=== PATIENT | male | born 1945 | race Two or more races ===

== ENCOUNTER 2021-06-05 12:32 | Inpatient (IN) ==
--- NOTE | 2021-06-05 16:35 | RAD ---
HISTORYHYPOTENSION, DIZZINESSSTUDYCHEST x-ray, 1 VIEWCOMPARISONNoneFINDINGSCardiomegaly and probable CHF. Possible pulmonary edema is present. No pneumothorax or pleural effusion is seen.IMPRESSIONProbable CHF and possible pulmonary edema.Electronically signed by: Tanner Burton (Jun 05, 2021 16:33:39)
[2021-06-05 16:42] LABS: BASOPHILS # (AUTO) 0.1 X10^3/uL (0.0-0.1); BASOPHILS % (AUTO) 1.3 % (0.2-1.0); EOSINOPHILS # (AUTO) 0.2 x10^3/uL (0.0-0.2); EOSINOPHILS % (AUTO) 2.4 % (0.9-2.9); LYMPHOCYTES # (AUTO) 3.5 X10^3/uL (1.3-2.9); LYMPHOCYTES % (AUTO) 37.6 % (21.0-51.0); MEAN CORPUSCULAR HGB CONC 29.8 g/dL (33.0-35.0); MEAN CORPUSCULAR VOLUME 53.5 fL (80.0-100.0); MEAN PLATELET VOLUME 8.7 fL (7.4-11.0); MONOCYTES # (AUTO) 0.5 x10^3/uL (0.3-0.8); NEUTROPHILS % (AUTO) 53.7 % (42.0-75.0); PLATELET COUNT 291 X10^3/uL (150.0-450.0); RED BLOOD COUNT 3.31 X10^6/uL (4.7-6.0); RED CELL DISTRIBUTION WIDTH 20.1 % (11.6-16.5); WHITE BLOOD COUNT 9.4 X10^3/uL (3.6-10.0)
[2021-06-05 16:44] LABS: HEMATOCRIT 17.7 % (42.0-54.0); HEMOGLOBIN 5.3 g/dL (13.5-18.0)
[2021-06-05] MEDS ORDERED: NS 1,000 ML IV 1,000 ML ONE (16:45)
[2021-06-05 16:52] LABS: ALANINE AMINOTRANSFERASE 19 Units/L (12-78); ALBUMIN 3.6 g/dL (3.4-5.0); ALKALINE PHOSPHATASE 75 Units/L (46-116); ASPARTATE AMINO TRANSFERASE 12 Units/L (15-37); BLOOD UREA NITROGEN 8 mg/dL (7-18); CALCIUM 8.4 mg/dL (8.5-10.1); CARBON DIOXIDE 27.6 mmol/L (21-32); CHLORIDE 105 mmol/L (98-107); CKMB % 2.7 % (<4); CREATINE KINASE 37 Units/L (39-308); CREATINE KINASE MB < 1.0 ng/mL (0-4.0); CREATININE 0.82 mg/dL (0.70-1.30); MAGNESIUM 2.3 mg/dL (1.7-2.9); SODIUM 141 mmol/L (136-145); TOTAL PROTEIN 7.1 g/dL (6.4-8.2); TROPONIN I < 0.02 ng/mL (0-1.5); TSH (3RD GENERATION) 3.208 uIU/mL (0.358-3.74); eGFR NON BLACK RACES > 60 (>60)
[2021-06-05] MEDS: NS 1,000 ML IV 1,000 ML IV SCH ×2 (17:05→19:18)
[2021-06-05] MEDS ORDERED: BENADRYL INJ 50 MG VIAL IVP ONE (17:07)
[2021-06-05] MEDS ORDERED: TYLENOL 325 MG TAB PO ONE (17:07)
[2021-06-05] MEDS ORDERED: LASIX IVP ONE (17:08)
[2021-06-05 17:09] LABS: ANISOCYTOSIS 1+; BAND NEUTROPHILS % 3 % (0-10); BASOPHILS % (MANUAL) 1 % (0-1); HYPOCHROMASIA 3+; METAMYELOCYTES % 1; MICROCYTOSIS 3+; PLATELET MORPHOLOGY COMMENT NORMAL (NORMAL); TARGET CELLS 2+
[2021-06-05] MEDS ORDERED: NS 1,000 ML IV 1,000 ML IV ONE (18:35)
[2021-06-05 18:44] LABS: BILIRUBIN,URINE NEGATIVE (NEGATIVE); BLOOD/HEMOGLOBIN,URINE NEGATIVE (NEGATIVE); GLUCOSE, URINE NEGATIVE (NEGATIVE); KETONES,URINE NEGATIVE (NEGATIVE); LEUKOCYTE ESTERASE ,URINE NEGATIVE (NEGATIVE); NITRITES,URINE NEGATIVE (NEGATIVE); PH,URINE 6.5 (5.0 - 8.0); PROTEIN,URINE NEGATIVE (NEGATIVE); UROBILINOGEN,URINE NORMAL (NORMAL)
[2021-06-05 18:47] LABS: APPEARANCE,URINE CLEAR (CLEAR); COLOR,URINE STRAW (YELLOW)
[2021-06-05] MEDS: HEMOCYTE-PLUS PO SCH (19:17)
[2021-06-05] MEDS ORDERED: PROCRIT or EPOGEN VIAL 10,000 UNITS SC ONE (19:58)
[2021-06-05] MEDS: COLACE CAP 100 MG PO SCH (20:38)
[2021-06-05] MEDS ORDERED: NS 100 ML IV 100 ML with VENOFER 400 MG IV ONE ×2 (21:00)
[2021-06-06] MEDS: NS 1,000 ML IV 1,000 ML IV SCH ×4 (00:34→17:41)
[2021-06-06 05:49] LABS: BASOPHILS # (AUTO) 0.1 X10^3/uL (0.0-0.1); EOSINOPHILS # (AUTO) 0.1 x10^3/uL (0.0-0.2); EOSINOPHILS % (AUTO) 1.2 % (0.9-2.9); LYMPHOCYTES # (AUTO) 1.8 X10^3/uL (1.3-2.9); LYMPHOCYTES % (AUTO) 21.5 % (21.0-51.0); MEAN CORPUSCULAR HEMOGLOBIN 16.3 pg (27.0-34.0); MEAN CORPUSCULAR HGB CONC 29.8 g/dL (33.0-35.0); MEAN CORPUSCULAR VOLUME 54.6 fL (80.0-100.0); MEAN PLATELET VOLUME 8.9 fL (7.4-11.0); MONOCYTES # (AUTO) 0.6 x10^3/uL (0.3-0.8); MONOCYTES % (AUTO) 7.4 % (0.0-13.0); NEUTROPHILS # (AUTO) 5.7 x10^3/uL (2.2-4.8); NEUTROPHILS % (AUTO) 68.9 % (42.0-75.0); PLATELET COUNT 251 X10^3/uL (150.0-450.0); RED CELL DISTRIBUTION WIDTH 19.9 % (11.6-16.5); WHITE BLOOD COUNT 8.3 X10^3/uL (3.6-10.0)
[2021-06-06 05:57] LABS: ALANINE AMINOTRANSFERASE 18 Units/L (12-78); ALBUMIN 2.9 g/dL (3.4-5.0); ALKALINE PHOSPHATASE 64 Units/L (46-116); ASPARTATE AMINO TRANSFERASE 12 Units/L (15-37); BLOOD UREA NITROGEN 8 mg/dL (7-18); CALCIUM 7.5 mg/dL (8.5-10.1); CARBON DIOXIDE 24.9 mmol/L (21-32); CHLORIDE 106 mmol/L (98-107); COR CA(FOR HYPOALB) 8.4 mg/dL (8.5-10.1); CREATININE 0.72 mg/dL (0.70-1.30); SODIUM 139 mmol/L (136-145); TOTAL PROTEIN 6.1 g/dL (6.4-8.2); eGFR NON BLACK RACES > 60 (>60)
[2021-06-06 06:24] LABS: HEMATOCRIT 16.4 % (42.0-54.0); HEMOGLOBIN 4.9 g/dL (13.5-18.0); PLATELET MORPHOLOGY COMMENT NORMAL (NORMAL)
[2021-06-06 06:25] LABS: ANISOCYTOSIS 1+; HYPOCHROMASIA 3+; MICROCYTOSIS 3+; TARGET CELLS PRESENT
--- NOTE | 2021-06-06 08:03 | DR.H&P ---
H&P History & Physical for Day of: H&P Date: 06/05/21 Chief Complaint Chief Complaint: Weakness, Dizziness, SOB Allergies Allergies Allergy/AdvReac Type Severity Reaction Status Date / Time No Known Drug Allergies Allergy Verified 06/05/21 17:34 History of Present Illness History of Present Illness: This is a pleasant 76 yo wm who presented in the office today for a BP recheck. His BP today is 66/47 which is lower than a week ago. He was 82/54 1 week ago. He was put on 0.1 mg of Florinef to help raise his BP but it did not help. He also reports now dizziness and weakness. He feels lethargic. He also notes he has to get up and urinate at night 5 times or more. Glucose was checked in office and it was 99. Patient will be admitted for his symptomatic hypotension for work-up of its cause. Past Surgical History Surgical History: Unknown Family History Family Medical History: denies Diabetes Mellitus, Cancer, [place], Coronary Artery Disease, Heart Failure, Sudden Cardiac and Hypertension Social History Does patient currently use any type of tobacco product: Yes Type of Tobacco Use: Cigarettes How many years tobacco product used: 40 Alcohol Use: None Drug Use: None Medications Home Medications: No Known Drug Allergies Allergy (Verified 06/05/21 17:34) CONTINUE taking the following medications aspirin [Jailene Aspirin] 81 mg PO DAILY 06/05/21 [History] cefuroxime axetil 500 mg PO BID 06/05/21 [History] fludrocortisone 0.1 mg PO DAILY 06/05/21 [History] Labs Result Diagrams: 06/06/21 04:49 06/06/21 04:49 Labs: Laboratory WBC 8.3 X10^3/uL (3.6-10.0) 06/06/21 04:49 RBC 3.00 X10^6/uL (4.7-6.0) L 06/06/21 04:49 Hgb 4.9 g/dL (13.5-18.0) L* 06/06/21 04:49 Hct 16.4 % (42.0-54.0) L* 06/06/21 04:49 MCV 54.6 fL (80.0-100.0) L 06/06/21 04:49 MCH 16.3 pg (27.0-34.0) L 06/06/21 04:49 MCHC 29.8 g/dL (33.0-35.0) L 06/06/21 04:49 RDW 19.9 % (11.6-16.5) H 06/06/21 04:49 Plt Count 251 X10^3/uL (150.0-450.0) 06/06/21 04:49 Plt Count Comment Adequate (ADEQUATE) 06/06/21 04:49 MPV 8.9 fL (7.4-11.0) 06/06/21 04:49 Neut % (Auto) 68.9 % (42.0-75.0) 06/06/21 04:49 Lymph % (Auto) 21.5 % (21.0-51.0) 06/06/21 04:49 [place] % (Auto) 7.4 % (0.0-13.0) 06/06/21 04:49 Eos % (Auto) 1.2 % (0.9-2.9) 06/06/21 04:49 Baso % (Auto) 1.0 % (0.2-1.0) 06/06/21 04:49 Neut # (Auto) 5.7 x10^3/uL (2.2-4.8) H 06/06/21 04:49 Lymph # (Auto) 1.8 X10^3/uL (1.3-2.9) 06/06/21 04:49 [place] # (Auto) 0.6 x10^3/uL (0.3-0.8) 06/06/21 04:49 Eos # (Auto) 0.1 x10^3/uL (0.0-0.2) 06/06/21 04:49 Baso # (Auto) 0.1 X10^3/uL (0.0-0.1) 06/06/21 04:49 Absolute Nucleated RBC 1.4 /100WBC 06/06/21 04:49 Total Counted 100 06/05/21 16:01 Neutrophils % (Manual) 56 % (39-76) 06/05/21 16:01 Band Neutrophils % 3 % (0-10) 06/05/21 16:01 Lymphocytes % (Manual) 30 % (13-43) 06/05/21 16:01 Monocytes % (Manual) 8 % (4-9) 06/05/21 16:01 Eosinophils % (Manual) 1 % (0-6) 06/05/21 16:01 Basophils % (Manual) 1 % (0-1) 06/05/21 16:01 Metamyelocytes % 1 06/05/21 16:01 Plt Morphology Comment Normal (NORMAL) 06/06/21 04:49 RBC Morphology Abnormal (NORMAL) 06/06/21 04:49 Hypochromasia 3+ A 06/06/21 04:49 Anisocytosis 1+ A 06/06/21 04:49 Microcytosis 3+ A 06/06/21 04:49 Target Cells Present 06/06/21 04:49 Sodium 139 mmol/L (136-145) 06/06/21 04:49 Corrected Sodium TNP 06/06/21 04:49 Potassium 4.0 mmol/L (3.5-5.1) 06/06/21 04:49 Chloride 106 mmol/L (98-107) 06/06/21 04:49 Carbon Dioxide 24.9 mmol/L (21-32) 06/06/21 04:49 BUN 8 mg/dL (7-18) 06/06/21 04:49 Creatinine 0.72 mg/dL (0.70-1.30) 06/06/21 04:49 Est GFR (MDRD) Af Amer > 60 (>60) 06/06/21 04:49 Est GFR (MDRD) Non-Af > 60 (>60) 06/06/21 04:49 Glucose 100 mg/dL (65-99) H 06/06/21 04:49 Calcium 7.5 mg/dL (8.5-10.1) L 06/06/21 04:49 Corrected Calcium 8.4 mg/dL (8.5-10.1) L 06/06/21 04:49 Magnesium 2.3 mg/dL (1.7-2.9) 06/05/21 16:01 Iron 8 ug/dL (50-175) L 06/05/21 16:01 Transferrin 410 mg/dL (202-364) H 06/05/21 16:01 Ferritin 2 ng/mL (26-388) L 06/05/21 16:01 Total Bilirubin 0.20 mg/dL (0.2-1.0) 06/06/21 04:49 AST 12 Units/L (15-37) L 06/06/21 04:49 ALT 18 Units/L (12-78) 06/06/21 04:49 Alkaline Phosphatase 64 Units/L (46-116) 06/06/21 04:49 Creatine Kinase 37 Units/L (39-308) L 06/05/21 16:01 CK-MB (CK-2) < 1.0 ng/mL (0-4.0) 06/05/21 16:01 CK/CKMB % Calc 2.7 % (<4) 06/05/21 16:01 Troponin I < 0.02 ng/mL (0-1.5) 06/05/21 16:01 Total Protein 6.1 g/dL (6.4-8.2) L 06/06/21 04:49 Albumin 2.9 g/dL (3.4-5.0) L 06/06/21 04:49 Globulin 3.2 g/dL (2.5-4.5) 06/06/21 04:49 Albumin/Globulin Ratio 0.9 Ratio (1.1-2.1) L 06/06/21 04:49 Total PSA 19.90 ng/mL (0.13-4.0) H 06/05/21 16:01 Vitamin B12 584 pg/mL (193-986) 06/05/21 16:01 Vitamin B12 591 pg/mL (193-986) 06/05/21 16:01 Folate 17.3 ng/mL (>8.6) 06/05/21 16:01 Folate 17.3 ng/mL (>8.6) 06/05/21 16:01 TSH 3rd Generation 3.208 uIU/mL (0.358-3.74) 06/05/21 16:01 Specimen Type Clean catch urine 06/05/21 18:23 Urine Color Straw (YELLOW) 06/05/21 18: Urine Appearance Clear (CLEAR) 06/05/21 18:23 Urine pH 6.5 (5.0 - 8.0) 06/05/21 18:23 Ur Specific [place] 1.010 (1.000-1.030) 06/05/21 18:23 Urine Protein Negative (NEGATIVE) 06/05/21 18:23 Urine Glucose (UA) Negative (NEGATIVE) 06/05/21 18:23 Urine Ketones Negative (NEGATIVE) 06/05/21 18:23 Urine Occult Blood Negative (NEGATIVE) 06/05/21 18:23 Urine Nitrite Negative (NEGATIVE) 06/05/21 18:23 Urine Bilirubin Negative (NEGATIVE) 06/05/21 18:23 Urine Urobilinogen Normal (NORMAL) 06/05/21 18:23 Ur Leukocyte Esterase Negative (NEGATIVE) 06/05/21 18:23 SARS-CoV-2 (PCR) Negative (NEGATIVE) 06/05/21 14:00 Influenza Type A (PCR) Negative (NEGATIVE) 06/05/21 14:00 Influenza Type B (PCR) Negative (NEGATIVE) 06/05/21 14:00 RSV (PCR) Negative (NEGATIVE) 06/05/21 14:00 Blood Type O POSITIVE 06/05/21 17:31 Antibody Screen Negative 06/05/21 17:31 Crossmatch See Detail 06/05/21 17:31 Review of Systems Constitutional: Weakness and Malaise Eyes: No Symptoms Reported ENT: No Symptoms Reported Respiratory: SOB with Excertion Cardiovascular: Other (CARBONE) Gastrointestinal: No Symptoms Reported Genitourinary: Other (Polyuria/ Nocturia 5x's/HS) Musculoskeletal: No Symptoms Reported Skin: No Symptoms Reported Neurological: Weakness Physical Exam Vital Signs: Temperature 99.0 F Pulse Rate [Left Brachial] 75 Pulse Rate 68 Respiratory Rate 74 Blood Pressure [Left Arm] 82/53 Blood Pressure 75/52 O2 Sat by Pulse Oximetry 96 Oriented: Normal Eyes: Normal Ear: Normal Nose: Normal Throat: Normal Respiratory: Clear Throughout Cardiovascular: Normal : Normal Auscultation: Bowel Sounds: Normal Palpation: Normal Tenderness: Normal Skin: Normal Musculoskeletal: Normal Psychiatric: Normal Mood Description: Calm Affect: Normal Speech Pattern: Clear Assessment/Plan (1) Hypotension: Status: Acute Plan: Check CBC, CMP (2) Nocturia: Status: Acute Plan: Check PSA (3) CARBONE (dyspnea on exertion): Status: Acute Plan: Serial cardiac enzymes and EKG's and CXR. (4) Weakness: Status: Acute Plan: Check TSH, B12 and Folate. Review H&P Reviewed: Yes Patient was examined?: Yes
[2021-06-06] MEDS: HEMOCYTE-PLUS PO SCH (08:09)
[2021-06-06] MEDS ORDERED: NS 250 ML IV 250 ML IV ONE (09:04)
[2021-06-06] MEDS ORDERED: NS 500 ML IV 500 ML IV ONE (10:00)
[2021-06-06 16:26] LABS: CKMB % 2.6 % (<4); CREATINE KINASE 39 Units/L (39-308); CREATINE KINASE MB < 1.0 ng/mL (0-4.0); TROPONIN I < 0.02 ng/mL (0-1.5)
[2021-06-06 17:44] LABS: HEMATOCRIT 23.3 % (42.0-54.0)
[2021-06-06 17:46] LABS: HEMOGLOBIN 7.3 g/dL (13.5-18.0)
[2021-06-06] MEDS: COLACE CAP 100 MG PO SCH (20:54)
--- NOTE | 2021-06-06 21:21 | DR.CONSULT ---
CONSULT Consultation for Day of: Date: 06/06/21 Chief Complaint Chief Complaint: I was asked to consult on this his patient who presented to his primary care provider with dizziness and was noted to be significantly hypotensive. On checking a hemoglobin it was 4. 6. He denies any recent blood in his stool or vomiting. He has no significant past medical problems. Allergies Allergies Allergy/AdvReac Type Severity Reaction Status Date / Time No Known Drug Allergies Allergy Verified 06/05/21 17:34 History of Present Illness History of Present Illness: As above. Past Surgical History Surgical History: Unknown Social History Does patient currently use any type of tobacco product: Yes Type of Tobacco Use: Cigarettes How many years tobacco product used: 40 Alcohol Use: None Drug Use: None Medications Home Medications: No Known Drug Allergies Allergy (Verified 06/05/21 17:34) CONTINUE taking the following medications aspirin [Jailene Aspirin] 81 mg PO DAILY 06/05/21 [History] cefuroxime axetil 500 mg PO BID 06/05/21 [History] fludrocortisone 0.1 mg PO DAILY 06/05/21 [History] Review of Systems Cardiovascular: Other (dizziness) Physical Exam Vital Signs: Temperature 98.3 F Pulse Rate [Left Brachial] 75 Pulse Rate 68 Respiratory Rate 18 Blood Pressure [Left Arm] 87/54 Blood Pressure 75/52 O2 Sat by Pulse Oximetry 98 Oriented: Normal, Time, Person and Place Eyes: Normal Ear: Normal Nose: Normal Throat: Normal Respiratory: Clear Throughout Cardiovascular: Normal : Normal Auscultation: Bowel Sounds: Normal Palpation: Normal Tenderness: Normal Skin: Normal Musculoskeletal: Normal Psychiatric: Normal Mood Description: Calm Affect: Quiet Speech Pattern: 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
[2021-06-07 05:36] LABS: HEMOGLOBIN 7.2 g/dL (13.5-18.0)
[2021-06-07 05:44] LABS: BASOPHILS # (AUTO) 0.1 X10^3/uL (0.0-0.1); EOSINOPHILS # (AUTO) 0.3 x10^3/uL (0.0-0.2); EOSINOPHILS % (AUTO) 3.2 % (0.9-2.9); HEMATOCRIT 22.4 % (42.0-54.0); LYMPHOCYTES # (AUTO) 1.9 X10^3/uL (1.3-2.9); LYMPHOCYTES % (AUTO) 21.1 % (21.0-51.0); MEAN CORPUSCULAR HGB CONC 32.1 g/dL (33.0-35.0); MEAN CORPUSCULAR VOLUME 62.3 fL (80.0-100.0); MEAN PLATELET VOLUME 8.6 fL (7.4-11.0); MONOCYTES # (AUTO) 1.1 x10^3/uL (0.3-0.8); MONOCYTES % (AUTO) 12.7 % (0.0-13.0); NEUTROPHILS # (AUTO) 5.5 x10^3/uL (2.2-4.8); PLATELET COUNT 206 X10^3/uL (150.0-450.0); RED CELL DISTRIBUTION WIDTH 32.5 % (11.6-16.5)
[2021-06-07 05:50] LABS: ALANINE AMINOTRANSFERASE 20 Units/L (12-78); ALBUMIN 2.9 g/dL (3.4-5.0); ALKALINE PHOSPHATASE 65 Units/L (46-116); ASPARTATE AMINO TRANSFERASE 15 Units/L (15-37); BLOOD UREA NITROGEN 6 mg/dL (7-18); CALCIUM 7.9 mg/dL (8.5-10.1); CHLORIDE 109 mmol/L (98-107); COR CA(FOR HYPOALB) 8.8 mg/dL (8.5-10.1); CREATININE 0.68 mg/dL (0.70-1.30); SODIUM 140 mmol/L (136-145); TOTAL PROTEIN 6.1 g/dL (6.4-8.2); eGFR NON BLACK RACES > 60 (>60)
[2021-06-07 06:12] LABS: ANISOCYTOSIS 3+; HYPOCHROMASIA 2+; MICROCYTOSIS 2+; PLATELET MORPHOLOGY COMMENT NORMAL (NORMAL)
[2021-06-07 06:13] LABS: OVALOCYTES PRESENT; TARGET CELLS PRESENT
[2021-06-07] MEDS: NS 1,000 ML IV 1,000 ML IV SCH ×3 (06:41→16:48)
[2021-06-07] MEDS: HEMOCYTE-PLUS PO SCH (08:39)
[2021-06-07] MEDS ORDERED: INFeD or DEXFERRUM 25 MG in NS 100 ML IV 100 ML IV ONE (09:00)
[2021-06-07] MEDS ORDERED: DRUG FILTER EXTENSION SET ONE (09:33)
[2021-06-07] MEDS ORDERED: INFeD or DEXFERRUM 975 MG in NS 500 ML IV 500 ML IV ONE (10:00)
[2021-06-07] MEDS ORDERED: NS 500 ML IV 500 ML IV ONE (15:12)
[2021-06-07 16:04] LABS: CKMB % 2.3 % (<4); CREATINE KINASE 43 Units/L (39-308); CREATINE KINASE MB < 1.0 ng/mL (0-4.0); TROPONIN I < 0.02 ng/mL (0-1.5)
[2021-06-07] MEDS: CITROMA PO SCH (16:48)
[2021-06-07 19:20] LABS: HEMATOCRIT 27.1 % (42.0-54.0)
--- NOTE | 2021-06-07 19:20 | NOTE.SOAP ---
Soap Note Note for Day of Date of Exam: 06/07/21 Subjective Data Subjective Data: PAtienr stable as is his Hgb Objective Data Temperature: 99.1 F Pulse Rate: 66 Respiratory Rate: 23 Blood Pressure: 90/53 O2 Sat by Pulse Oximetry: 98 Objective Data: Benign abdomen Hgb = 7.2 Assessment Assessment: Anemia . possible GE origin Plan Plan: Colonoscopy and EGD tomorrow
[2021-06-07 19:21] LABS: HEMOGLOBIN 8.7 g/dL (13.5-18.0)
[2021-06-07] MEDS: COLACE CAP 100 MG PO SCH (21:46)
[2021-06-08] MEDS: NS 1,000 ML IV 1,000 ML IV SCH ×3 (02:10→19:45)
[2021-06-08 05:25] LABS: BASOPHILS # (AUTO) 0.1 X10^3/uL (0.0-0.1); BASOPHILS % (AUTO) 0.9 % (0.2-1.0); EOSINOPHILS # (AUTO) 0.3 x10^3/uL (0.0-0.2); EOSINOPHILS % (AUTO) 2.9 % (0.9-2.9); HEMATOCRIT 24.6 % (42.0-54.0); LYMPHOCYTES % (AUTO) 22.7 % (21.0-51.0); MEAN CORPUSCULAR HEMOGLOBIN 21.3 pg (27.0-34.0); MEAN CORPUSCULAR HGB CONC 32.5 g/dL (33.0-35.0); MEAN CORPUSCULAR VOLUME 65.7 fL (80.0-100.0); MEAN PLATELET VOLUME 8.9 fL (7.4-11.0); MONOCYTES # (AUTO) 1.1 x10^3/uL (0.3-0.8); MONOCYTES % (AUTO) 11.9 % (0.0-13.0); NEUTROPHILS # (AUTO) 5.5 x10^3/uL (2.2-4.8); NEUTROPHILS % (AUTO) 61.6 % (42.0-75.0); PLATELET COUNT 179 X10^3/uL (150.0-450.0); RED BLOOD COUNT 3.74 X10^6/uL (4.7-6.0); RED CELL DISTRIBUTION WIDTH 34.2 % (11.6-16.5)
[2021-06-08 05:39] LABS: ALANINE AMINOTRANSFERASE 26 Units/L (12-78); ALBUMIN 2.9 g/dL (3.4-5.0); ALKALINE PHOSPHATASE 66 Units/L (46-116); BLOOD UREA NITROGEN 5 mg/dL (7-18); CALCIUM 7.7 mg/dL (8.5-10.1); CHLORIDE 109 mmol/L (98-107); COR CA(FOR HYPOALB) 8.6 mg/dL (8.5-10.1); CREATININE 0.64 mg/dL (0.70-1.30); SODIUM 140 mmol/L (136-145); eGFR NON BLACK RACES > 60 (>60)
[2021-06-08 05:59] LABS: ASPARTATE AMINO TRANSFERASE 20 Units/L (15-37)
[2021-06-08 06:00] LABS: PLATELET MORPHOLOGY COMMENT NORMAL (NORMAL)
[2021-06-08 06:01] LABS: ANISOCYTOSIS 3+; HYPOCHROMASIA 2+; MICROCYTOSIS 1+; TARGET CELLS PRESENT
--- NOTE | 2021-06-08 08:23 | PCM.PROG ---
Progress Note Progress Note for Day of Date of Exam: 06/08/21 Subjective Subjective: Patient is awaiting EGD this am per Dr. Sotelo. No problems overnight. Hb is up to 8.0 after 3 units of PRBC's. Fecal occult blood test is positive. Patient is still hypotensive after transfusion with a BP this morning of 83/52. Low potassium this am at 3.4. Will replace. Past Medical Family Social History Past Med/Fam/Surg Hx: No changes since H&P Allergies: Allergies No Known Drug Allergies Allergy (Verified 06/05/21 17:34) Review of Systems ROS: No change since H&P Vital Signs and I&O's Vital Signs: Temperature 98.7 F Pulse Rate [Left Brachial] 73 Pulse Rate 65 Respiratory Rate 24 Blood Pressure [Right Arm] 139/65 Blood Pressure [Left Arm] 83/52 Blood Pressure 86/50 O2 Sat by Pulse Oximetry 97 Intake and Output: Intake & Output 06/05/21 06/06/21 06/07/21 06/08/21 11:59 11:59 11:59 11:59 Intake Total 2876 / 2876 2970 / 2970 4138 / 4138 Output Total 1000 / 1000 1130 / 1130 Balance 2876 / 2876 1969 / 1969 3008 / 3008 Physical Exam Oriented: Normal, Time, Person and Place Eyes: Normal Ear: Normal Nose: Normal Throat: Normal Cardiovascular: Normal : Normal Auscultation: Bowel Sounds: Normal Tenderness: Normal Skin: Normal Musculoskeletal: Normal Psychiatric: Normal Mood Description: Calm Affect: Quiet Speech Pattern: Clear and Appropriate Laboratory and Diagnostics Result Diagrams: 06/08/21 04:37 06/08/21 04:37 Labs: Laboratory WBC 9.0 X10^3/uL (3.6-10.0) 06/08/21 04:37 RBC 3.74 X10^6/uL (4.7-6.0) L 06/08/21 04:37 Hgb 8.0 g/dL (13.5-18.0) L 06/08/21 04:37 Hct 24.6 % (42.0-54.0) L 06/08/21 04:37 MCV 65.7 fL (80.0-100.0) L 06/08/21 04:37 MCH 21.3 pg (27.0-34.0) L 06/08/21 04:37 MCHC 32.5 g/dL (33.0-35.0) L 06/08/21 04:37 RDW 34.2 % (11.6-16.5) H 06/08/21 04:37 Plt Count 179 X10^3/uL (150.0-450.0) 06/08/21 04:37 Plt Count Comment Adequate (ADEQUATE) 06/08/21 04:37 MPV 8.9 fL (7.4-11.0) 06/08/21 04:37 Neut % (Auto) 61.6 % (42.0-75.0) 06/08/21 04:37 Lymph % (Auto) 22.7 % (21.0-51.0) 06/08/21 04:37 [place] % (Auto) 11.9 % (0.0-13.0) 06/08/21 04:37 Eos % (Auto) 2.9 % (0.9-2.9) 06/08/21 04:37 Baso % (Auto) 0.9 % (0.2-1.0) 06/08/21 04:37 Neut # (Auto) 5.5 x10^3/uL (2.2-4.8) H 06/08/21 04:37 Lymph # (Auto) 2.0 X10^3/uL (1.3-2.9) 06/08/21 04:37 [place] # (Auto) 1.1 x10^3/uL (0.3-0.8) H 06/08/21 04:37 Eos # (Auto) 0.3 x10^3/uL (0.0-0.2) H 06/08/21 04:37 Baso # (Auto) 0.1 X10^3/uL (0.0-0.1) 06/08/21 04:37 Absolute Nucleated RBC 0.6 /100WBC 06/08/21 04:37 Total Counted 100 06/05/21 16:01 Neutrophils % (Manual) 56 % (39-76) 06/05/21 16:01 Band Neutrophils % 3 % (0-10) 06/05/21 16:01 Lymphocytes % (Manual) 30 % (13-43) 06/05/21 16:01 Monocytes % (Manual) 8 % (4-9) 06/05/21 16:01 Eosinophils % (Manual) 1 % (0-6) 06/05/21 16:01 Basophils % (Manual) 1 % (0-1) 06/05/21 16:01 Metamyelocytes % 1 06/05/21 16:01 Plt Morphology Comment Normal (NORMAL) 06/08/21 04:37 RBC Morphology Abnormal (NORMAL) 06/08/21 04:37 Dimorphic RBCs Present 06/08/21 04:37 Hypochromasia 2+ A 06/08/21 04:37 Anisocytosis 3+ A 06/08/21 04:37 Microcytosis 1+ A 06/08/21 04:37 Target Cells Present 06/08/21 04:37 Ovalocytes Present 06/07/21 04:58 Acanthocytes (Spur) Present 06/08/21 04:37 Sodium 140 mmol/L (136-145) 06/08/21 04:37 Corrected Sodium TNP 06/08/21 04:37 Potassium 3.4 mmol/L (3.5-5.1) L 06/08/21 04:37 Chloride 109 mmol/L (98-107) H 06/08/21 04:37 Carbon Dioxide 26.0 mmol/L (21-32) 06/08/21 04:37 BUN 5 mg/dL (7-18) L 06/08/21 04:37 Creatinine 0.64 mg/dL (0.70-1.30) L 06/08/21 04:37 Est GFR (MDRD) Af Amer > 60 (>60) 06/08/21 04:37 Est GFR (MDRD) Non-Af > 60 (>60) 06/08/21 04:37 Glucose 102 mg/dL (65-99) H 06/08/21 04:37 Calcium 7.7 mg/dL (8.5-10.1) L 06/08/21 04:37 Corrected Calcium 8.6 mg/dL (8.5-10.1) 06/08/21 04:37 Magnesium 2.3 mg/dL (1.7-2.9) 06/05/21 16:01 Iron 8 ug/dL (50-175) L 06/05/21 16:01 Transferrin 410 mg/dL (202-364) H 06/05/21 16:01 Ferritin 2 ng/mL (26-388) L 06/05/21 16:01 Total Bilirubin 0.30 mg/dL (0.2-1.0) 06/08/21 04:37 AST 20 Units/L (15-37) 06/08/21 04:37 ALT 26 Units/L (12-78) 06/08/21 04:37 Alkaline Phosphatase 66 Units/L (46-116) 06/08/21 04:37 Creatine Kinase 43 Units/L (39-308) 06/07/21 15:36 CK-MB (CK-2) < 1.0 ng/mL (0-4.0) 06/07/21 15:36 CK/CKMB % Calc 2.3 % (<4) 06/07/21 15:36 Troponin I < 0.02 ng/mL (0-1.5) 06/07/21 15:36 Total Protein 6.0 g/dL (6.4-8.2) L 06/08/21 04:37 Albumin 2.9 g/dL (3.4-5.0) L 06/08/21 04:37 Globulin 3.1 g/dL (2.5-4.5) 06/08/21 04:37 Albumin/Globulin Ratio 0.9 Ratio (1.1-2.1) L 06/08/21 04:37 Total PSA 19.90 ng/mL (0.13-4.0) H 06/05/21 16:01 Vitamin B12 584 pg/mL (193-986) 06/05/21 16:01 Vitamin B12 591 pg/mL (193-986) 06/05/21 16:01 Folate 17.3 ng/mL (>8.6) 06/05/21 16:01 Folate 17.3 ng/mL (>8.6) 06/05/21 16:01 TSH 3rd Generation 3.208 uIU/mL (0.358-3.74) 06/05/21 16:01 Specimen Type Clean catch urine 06/05/21 18:23 Urine Color Straw (YELLOW) 06/05/21 18:23 Urine Appearance Clear (CLEAR) 06/05/21 18:23 Urine pH 6.5 (5.0 - 8.0) 06/05/21 18:23 Ur Specific [place] 1.010 (1.000-1.030) 06/05/21 18:23 Urine Protein Negative (NEGATIVE) 06/05/21 18:23 Urine Glucose (UA) Negative (NEGATIVE) 06/05/21 18:23 Urine Ketones Negative (NEGATIVE) 06/05/21 18:23 Urine Occult Blood Negative (NEGATIVE) 06/05/21 18:23 Urine Nitrite Negative (NEGATIVE) 06/05/21 18:23 Urine Bilirubin Negative (NEGATIVE) 06/05/21 18:23 Urine Urobilinogen Normal (NORMAL) 06/05/21 18:23 Ur Leukocyte Esterase Negative (NEGATIVE) 06/05/21 18:23 Stool Description 450g mixed dark 06/07/21 19:20 Stl Occult Blood (IFOB) Positive (NEGATIVE) A 06/07/21 19:20 SARS-CoV-2 (PCR) Negative (NEGATIVE) 06/05/21 14:00 Influenza Type A (PCR) Negative (NEGATIVE) 06/05/21 14:00 Influenza Type B (PCR) Negative (NEGATIVE) 06/05/21 14:00 RSV (PCR) Negative (NEGATIVE) 06/05/21 14:00 Blood Type O POSITIVE 06/05/21 17:31 Antibody Screen Negative 06/05/21 17:31 Crossmatch See Detail 06/05/21 17:31 Radiology Reviewed: Yes EKG Reviewed: Yes Rhythm: NSR ST: Normal Plan (1) GI bleed: Status: Acute Plan: EGD this morning per Dr. Sotelo. (2) Hypotension: Status: Acute Narrative Support Text: Improved but still low. Plan: Continue IVF and Blood transfusions as neeeded. (3) Nocturia: Status: Acute Plan: Will refer patient to Urology as an outpatient for further workup. (4) CARBONE (dyspnea on exertion): Status: Acute Narrative Support Text: CE's were normal. EKG showed NSR with no ischemic changes. (5) Weakness: Status: Acute Plan: Check TSH, B12 and Folate. (6) Anemia: Status: Acute Qualifiers: Anemia type: iron deficiency Iron deficiency anemia type: chronic blood loss Qualified Code(s): D50.0 - Iron deficiency anemia secondary to blood loss (chronic) Narrative Support Text: Positive hemocult. Plan: EGD today. F/U with results when available. (7) Elevated PSA, between 10 and less than 20 ng/ml: Status: Acute
[2021-06-08] MEDS ORDERED: POTASSIUM CHLORIDE LIQ 20 MEQ UDC PO ONE (08:37)
[2021-06-08] MEDS ORDERED: EPHEDRINE SULFATE INJ ONE (11:22)
[2021-06-08] MEDS ORDERED: VERSED ONE (11:22)
[2021-06-08] MEDS ORDERED: DIPRIVAN VIAL 40 ML ONE (11:37)
--- NOTE | 2021-06-08 12:03 | OR.IMMED ---
IMMEDIATE POST-OP NOTE Immediate Post-Op Note Pre-Op Diagnosis: Anemia possible GI bleed Post-Op Diagnosis: mild gastritis no active bleeding, mild sigmoid diverticulosis, no active bleeding, no other abnormalities of the colon noted Procedure: esophago-gastroduodenoscopy, colonoscopy Description of Procedure: see operative summary Surgeon/Jail Keeper: Ashleigh Findings: as above Specimens Removed: none Estimated Blood Loss: none Drains: NONE Complications: none Discharge Progress Notes: return to ICU. May begin regular diet Condition: Stable Final Diagnosis: mild gastritis, mild sigmoid diverticulosis. No obvious active bleeding
[2021-06-08] MEDS: HEMOCYTE-PLUS PO SCH (12:35)
[2021-06-08] MEDS ORDERED: POTASSIUM CHLORIDE LIQ 20 MEQ UDC PO NR (13:00)
[2021-06-08] MEDS: CITROMA PO SCH (19:47)
[2021-06-08] MEDS: PROTONIX TAB 40 MG PO SCH (21:58)
[2021-06-08] MEDS: COLACE CAP 100 MG PO SCH (21:58)
[2021-06-09] MEDS: NS 1,000 ML IV 1,000 ML IV SCH ×2 (00:27→08:32)
[2021-06-09 05:32] LABS: BASOPHILS # (AUTO) 0.1 X10^3/uL (0.0-0.1); BASOPHILS % (AUTO) 0.9 % (0.2-1.0); EOSINOPHILS # (AUTO) 0.2 x10^3/uL (0.0-0.2); EOSINOPHILS % (AUTO) 2.4 % (0.9-2.9); HEMOGLOBIN 8.3 g/dL (13.5-18.0); LYMPHOCYTES % (AUTO) 21.5 % (21.0-51.0); MEAN CORPUSCULAR VOLUME 66.7 fL (80.0-100.0); MEAN PLATELET VOLUME 8.8 fL (7.4-11.0); MONOCYTES # (AUTO) 0.9 x10^3/uL (0.3-0.8); MONOCYTES % (AUTO) 9.6 % (0.0-13.0); NEUTROPHILS # (AUTO) 6.1 x10^3/uL (2.2-4.8); NEUTROPHILS % (AUTO) 65.6 % (42.0-75.0); PLATELET COUNT 168 X10^3/uL (150.0-450.0); RED BLOOD COUNT 3.75 X10^6/uL (4.7-6.0); RED CELL DISTRIBUTION WIDTH 35.1 % (11.6-16.5); WHITE BLOOD COUNT 9.3 X10^3/uL (3.6-10.0)
[2021-06-09 05:44] LABS: ALANINE AMINOTRANSFERASE 28 Units/L (12-78); ALBUMIN 2.9 g/dL (3.4-5.0); ALKALINE PHOSPHATASE 66 Units/L (46-116); ASPARTATE AMINO TRANSFERASE 21 Units/L (15-37); BLOOD UREA NITROGEN 5 mg/dL (7-18); CALCIUM 7.9 mg/dL (8.5-10.1); CARBON DIOXIDE 26.3 mmol/L (21-32); CHLORIDE 103 mmol/L (98-107); COR CA(FOR HYPOALB) 8.8 mg/dL (8.5-10.1); CREATININE 0.71 mg/dL (0.70-1.30); MAGNESIUM 2.4 mg/dL (1.7-2.9); SODIUM 138 mmol/L (136-145); TOTAL PROTEIN 6.2 g/dL (6.4-8.2); eGFR NON BLACK RACES > 60 (>60)
[2021-06-09 05:57] LABS: ANISOCYTOSIS 3+; HYPOCHROMASIA 2+; MICROCYTOSIS 1+; PLATELET MORPHOLOGY COMMENT NORMAL (NORMAL); TARGET CELLS PRESENT
[2021-06-09] MEDS: PROTONIX TAB 40 MG PO SCH (08:32)
[2021-06-09] MEDS: HEMOCYTE-PLUS PO SCH (08:32)
[2021-06-09 09:19] VITALS: BP 85/52
--- NOTE | 2021-06-09 12:14 | DR.OPNOTE ---
OP NOTE Pre-Op Diagnosis: sever anemia , possible GI blood loss Post-Op Diagnosis: Mild gastritis and duodenitis , sigmoid diverticulosis , no active bleeding Procedure Date Date Of Procedure: 06/08/21 Procedure: ESOPHAGODUODENOSCOPY: The patient was taken to the endoscopy suite, placed in the left lateral position and given IV sedation. Time out for the procedure obtained . Bite Block placed in the mouth and endoscope introduced through the mouth into the esophagus and into the stomach. Scope traversed the pylorus and into the duodenum. There was small areas of inflammation in the duodenum and at the pylorus with no active bleeding. J maneuver carried out showing no significant hiatal hernia. There was no active bleeding. The scope was withdrawn. Esophagus was normal. COLONOSCOPY: After completion of the EGD, kitchen was turned around and the flexible colonoscope introduced through the anus and taking all the way to the seeking without difficulty. On withdrawing the scope there were no abnormalities of significance. There was no active bleeding. There was some mild sigmoid diverticulosis. The patient tolerated this well. Anesthesia Comment: MAC Findings: ABOVE Specimen/Pathology: NONE Type of Fluids Used:: Lactated Ringers EBL: NONENONE Complications:: NONE Needle/Sponge Count:: CORRECT Disposition/Condition: Pt. tolerated procedure without difficulty. Taken to the ICU in stable condition.
== END 2021-06-09 08:57 | disposition home or self-care (01) | DRG 316 ==
LOC: ICU → OBSVTOIN 12:35
PROVIDERS: ADMIT Obstetrics & Gynecology Obstetrics; ATTEND Family Medicine
DX: K29.60 Other gastritis without bleeding; D50.0 Iron deficiency anemia secondary to blood loss (chronic); K29.80 Duodenitis without bleeding; K57.90 Diverticulosis of intestine, part unspecified, without perforation or abscess without bleeding; R35.1 Nocturia; Z20.822 Contact with and (suspected) exposure to COVID-19; R53.1 Weakness; R42 Dizziness and giddiness; I95.89 Other hypotension; R97.20 Elevated prostate specific antigen [PSA]